=== PATIENT | male | born 1985 | race Caucasian/White ===

== ENCOUNTER 2017-08-12 03:57 | Emergency (ER) | payer OTHER ==
[2017-08-12] MEDS: IBUPROFEN 800 MG TABLET. PO ×2 (04:30)
[2017-08-12] MEDS: SMZ/TMP 800/160MG TABLET. PO ×2 (04:39)
== END 2017-08-12 05:07 | disposition home or self-care (01) ==
LOC: ER 03:57
DX: H01.001 Unspecified blepharitis right upper eyelid (principal)
CPT/HCPCS: 99283